=== PATIENT | female | born 1975 | race Caucasian/White ===

== ENCOUNTER 2016-12-01 13:10 | Emergency (ER) | payer OTHER ==
[~2016-12-01] VITALS: Ht 154.9 cm; Wt 94.0 kg
[~2016-12-01 13:10] MED LIST: BECL8.7A; FERR325C PO; PHEN100C PO; PREN1TAB12 PO
[2016-12-01 13:16] VITALS: Ht 154.9 cm; Wt 94.0 kg
[2016-12-01] MEDS ORDERED: ALBUTEROL 0.083% (NEB) 2.5 MG/3 ML AMP HHN STA (13:48)
--- NOTE | 2016-12-01 14:26 | RADRPT ---
PROCEDURE: US OB. CLINICAL INDICATION: Size and dates , pelvic pressure TECHNIQUE: Multiple sonographic images of the pelvis and gravid uterus were obtained. The images were reviewed on a PACS workstation. COMPARISON: No prior studies are available for comparison. FINDINGS: There is a single viable intrauterine gestation. Cardiac activity is present with 156 beats per min [place]. There is a variable presentation. The placenta is anterior/posterior. There is no evidence for an abruption or placenta previa. There is a normal amount of amniotic fluid with a MVP = 3.9 cm. Measurements were made in order to determine age. The results are as follows: BPD =3.3 cm HC =14.1 cm AC =13.3 cm FL =2.3 cm Estimated gestational age of approximately 17 weeks and 3 days based on ultrasound measurements. Clinical age: 17 weeks and 5 days. The estimated date of delivery is 05/08/17, based on ultrasound measurements. The EFW = 210 g, 49.7%, based on LMP age. The ovaries are not visualized. RPTAT: AA IMPRESSION: Single viable intrauterine gestation of approximately 17 weeks and 3 days based on ultrasound measu rements. .Lev Mishra MD, Date Time Electronically viewed and signed by .Lev Mishra MD, on 12/01/2016 14:26 .S/
--- NOTE | 2016-12-01 14:37 | RADRPT ---
PROCEDURE: US Lower extremity Venous. CLINICAL INDICATION: Left leg pain and swelling TECHNIQUE: Multiple sonographic images of the left lower extremity deep venous system was obtained utilizing grayscale, color-flow, compressive sonography and doppler imaging with augmentation. The images were reviewed on a PACS workstation. COMPARISON: None. FINDINGS: There is normal compressibility and flow within the left common femoral, deep femoral, superficial f emoral and popliteal veins. Normal color flow is seen with respiratory variability and augmentation. IMPRESSION: No sonographic evidence for deep venous thrombosis in the left lower extremity. RPTAT: HPNM Physician Mercedes Date Time Electronically viewed and signed by Physician Mercedes on 12/01/2016 14:37 /
[2016-12-01 14:51] LABS: ADD UMIC NO; URINE BILIRUBIN (Dip) NEGATIVE (NEGATIVE); URINE BLOOD (Dip) NEGATIVE (NEGATIVE); URINE COLOR YELLOW (YELLOW); URINE GLUCOSE (Dip) NEGATIVE (NEGATIVE); URINE KETONES (Dip) TRACE (NEGATIVE); URINE LEUKOCYTE ESTERASE (Dip) NEGATIVE (NEGATIVE); URINE NITRITE (Dip) NEGATIVE (NEGATIVE); URINE TOTAL PROTEIN (Dip) NEGATIVE (NEGATIVE); URINE UROBILINOGEN (Dip) 0.2 E.U./dL (0.1-1.0)
[2016-12-01 14:51] LABS: ADD SCAN DIFF NO
[2016-12-01 14:53] LABS: BASOPHILS % 0.4 % (0.0-2.0); EOSINOPHILS # 0.3 10^3/ul (0.0-0.5); EOSINOPHILS % 3.5 % (0.0-7.0); HEMATOCRIT 35.2 % (37.0-47.0); HEMOGLOBIN 11.7 g/dl (12.0-16.0); LYMPHOCYTES # 1.8 10^3/ul (0.8-2.9); LYMPHOCYTES % 21.5 % (15.0-51.0); MEAN CORPUSCULAR HEMOGLOBIN 30.1 pg (29.0-33.0); MEAN CORPUSCULAR HGB CONC 33.2 g/dl (32.0-37.0); MEAN CORPUSCULAR VOLUME 90.5 fl (82.0-101.0); MEAN PLATELET VOLUME 12.1 fl (7.4-10.4); MONOCYTE # 0.6 10^3/ul (0.3-0.9); MONOCYTES % 6.5 % (0.0-11.0); NEUTROPHIL # 5.8 10^3/ul (1.6-7.5); NEUTROPHILS % 67.7 % (39.0-77.0); PLATELET COUNT 213 10^3/UL (140-415); RED BLOOD COUNT 3.89 10^6/ul (4.20-5.40); RED CELL DISTRIBUTION WIDTH 13.1 % (11.5-14.5); WHITE BLOOD COUNT 8.6 10^3/ul (4.8-10.8)
[2016-12-01 15:03] LABS: ALBUMIN 3.5 g/dl (3.3-4.9)
[2016-12-01 15:06] LABS: ALBUMIN/GLOBULIN RATIO 1.06; BILIRUBIN,INDIRECT 0.6 mg/dl (0-1.1); BILIRUBIN,TOTAL 0.6 mg/dl (0.2-1.3); CALCIUM 9.4 mg/dl (8.4-10.2); CREATININE 0.55 mg/dl (0.44-1.00); TOTAL PROTEIN 6.8 g/dl (6.1-8.1)
--- NOTE | 2016-12-01 15:20 | ERD ---
ER Documentation Chief Complaint Date/Time DATE: 12/01/16 TIME: 15:17 Chief Complaint pt bib self, cough, runny nose, cold symptoms, 17 wks HPI This is a 41-year-old female presents to the ER with multiple complaints. Patient has had a cough for the last month. Patient states that today she began to feel short of breath, she states that she does have a past medical history of asthma. Patient went to her primary care doctor and primary care doctor sent her over here. Patient states that she has had chills however denies fevers. Patient also complaining of left arm and left leg pain. She also is complaining of lower back pain that radiates to her pelvic region. Patient denies any vaginal bleeding. She denies any vaginal discharge. She denies any urinary frequency or dysuria. Patient does have a past medical history of a DVT in her left leg. Patient denies any nausea vomiting or diarrhea. Patient does have diabetes she takes metformin for her diabetes. ROS 12 point review of systems was done, all negative except per HPI. Medications Home Meds Active Scripts Albuterol Sulfate* (Proair HFA*) 8.5 Gm Hfa.aer.ad, 2 PUFF INH Q4, #1 INHALER Prov:YARIEL PEREZ 12/01/16 Dextromethorphan Hb-Promethazine Hcl (Promethazine DM Syrup) 473 Ml Syrup, 10 ML PO Q6H Y for COUGH, #4 OZ Prov:YARIEL PEREZ 12/01/16 Reported Medications Ferrous Sulfate (Iron) 325 Mg Capsr, 325 MG PO DAILY, 0 Refills 11/23/10 Vit-Iron Fumarate-FA (Prenavite Tablet) 1 Tab Tablet, 1 TAB PO DAILY, 0 Refills 11/23/10 Beclomethasone Dip* (Qvar 40*) 7.3 Gm Inha 11/23/10 Phenytoin* Sodium Extended (Dilantin*) 100 Mg Capsule, 300 MG PO DAILY, 0 Refills 11/23/10 Allergies Allergies: Coded Allergies: ibuprofen (Verified Allergy, Unknown, 09/09/11) PMhx/Soc History of Surgery: No Anesthesia Reaction: No Hx Neurological Disorder: Yes (SEIZURES) Hx Respiratory Disorders: Yes (ASTHMA) Hx Cardiac Disorders: No Hx Psychiatric Problems: No Hx Miscellaneous Medical Probl: No Hx Alcohol Use: No Hx Substance Use: No Hx Tobacco Use: No Smoking Status: Never smoker Physical Exam Vitals Vital Signs Date Time Temp Pulse Resp B/P Pulse Ox O2 Delivery O2 Flow Rate FiO2 12/01/16 14:52 78 18 98 21 12/01/16 13:16 98.3 78 18 118/70 98 Physical Exam GENERAL: The patient is well-developed, well-nourished, in no acute distress. HEENT: Atraumatic. RESPIRATORY: Clear to auscultation bilaterally. There are no rales, wheezes or rhonchi. HEART: Regular rate and rhythm. No murmurs, clicks, rubs or gallops. Extremities: Left leg, there is no swelling or redness of the calf. NEUROLOGIC: Alert and oriented. SKIN: There is no rash. The skin is warm and dry. Result Diagram: 12/01/16 1444 12/01/16 1444 Results 24 hrs Laboratory Tests Test 12/01/16 14:00 12/01/16 14:44 Urine Color YELLOW Urine Clarity CLEAR Urine pH 5.5 Urine Specific [place] >=1.030 Urine Ketones TRACE Urine Nitrite NEGATIVE Urine Bilirubin NEGATIVE Urine Urobilinogen 0.2 E.U./dL Urine Leukocyte Esterase NEGATIVE Urine Hemoglobin NEGATIVE Urine Glucose NEGATIVE% Urine Total Protein NEGATIVE White Blood Count 8.610^3/ul Red Blood Count 3.8910^6/ul Hemoglobin 11.7g/dl Hematocrit 35.2% Mean Corpuscular Volume 90.5fl Mean Corpuscular Hemoglobin 30.1pg Mean Corpuscular Hemoglobin Concent 33.2g/dl Red Cell Distribution Width 13.1% Platelet Count 93318^3/UL Mean Platelet Volume 12.1fl Neutrophils % 67.7% Lymphocytes % 21.5% Monocytes % 6.5% Eosinophils % 3.5% Basophils % 0.4% Nucleated Red Blood Cells % 0.0/100WBC Neutrophils # 5.810^3/ul Lymphocytes # 1.810^3/ul Monocytes # 0.610^3/ul Eosinophils # 0.310^3/ul Basophils # 0.010^3/ul Nucleated Red Blood Cells # 0.010^3/ul Sodium Level 135mmol/L Potassium Level 4.0mmol/L Chloride Level 102mmol/L Carbon Dioxide Level 24mmol/L Anion Gap 13 Blood Urea Nitrogen 10mg/dl Creatinine 0.55mg/dl Glucose Level 95mg/dl Calcium Level 9.4mg/dl Total Bilirubin 0.6mg/dl Direct Bilirubin 0.00mg/dl Indirect Bilirubin 0.6mg/dl Aspartate Amino Transf (AST/SGOT) 40IU/L Alanine Aminotransferase (ALT/SGPT) 66IU/L Alkaline Phosphatase 52IU/L Total Protein 6.8g/dl Albumin 3.5g/dl Globulin 3.30g/dl Albumin/Globulin Ratio 1.06 Current Medications Medications (Trade) Dose Ordered Sig/León Route PRN Reason Start Time Stop Time Status Last Admin Dose Admin Albuterol (Proventil 0.083% (Neb)) 5 mg ONCE STAT HHN 12/01/16 13:48 12/01/16 13:53 DC 12/01/16 14:49 Procedures/MDM This is a 41-year-old female presents to the ER with multiple complaints. Patient does have upper respiratory infection symptoms. I discussed this case with Dr. Rios, and he agrees with my medical decision making. At this time this is likely viral in etiology. Patient did not have any evidence of pneumonia on x-ray. She was given albuterol nebulized treatment and she felt significantly better. Suspicion for DVT is low. Patient's ultrasound for clots was negative and her vital signs are stable with no evidence of tachycardia or hypoxia. Afebrile and well-appearing. In regards to patient's back pain this may be secondary to . Patients OB ultrasound was also normal. Patient was sent home with promethazine and albuterol. She is to follow-up with her primary care doctor within 1-2 days return to ER sooner if symptoms worsen. My medical decision making was shared with the patient she understands and agrees with plan. Departure Diagnosis: Primary Impression: Upper respiratory infection Condition: Stable YARIEL PEREZ Dec 01, 2016 15:20
--- NOTE | 2016-12-01 17:01 | RADRPT ---
PROCEDURE: XR Chest. CLINICAL INDICATION: Cough. TECHNIQUE: PA and Lateral views of the chest were obtained. COMPARISON: Chest x-ray 01/10/2008.c FINDINGS: The soft tissues are normal. The bony elements are normal. The heart, left side aorta, cardiomedia stinal silhouette, pulmonary vasculature and hilar structures are normal. The lungs are clear. The costophrenic angles are normal. IMPRESSION: 1. Stable chest x-ray with no evidence of active cardiopulmonary disease. RPTAT:AAJJ Physician Ellie Date Time Electronically viewed and signed by Alli Sutton Physician on 12/01/2016 17:00 JASON/
[2016-12-01] MEDS ORDERED: D-ME473S18 PO (17:06)
[2016-12-01] MEDS ORDERED: ALBU8.5H3 INH (17:06)
== END 2016-12-01 17:19 | disposition home or self-care (01) ==
LOC: FTE 13:10
DX: O99.512 Diseases of the respiratory system complicating pregnancy, second trimester (principal); J06.9 Acute upper respiratory infection, unspecified; J45.909 Unspecified asthma, uncomplicated; R05 Cough; Z3A.17 17 weeks gestation of pregnancy
CPT/HCPCS: 71010; 76805; 80053; 81003; 85025; 93971; 94664; Z7502; Z7610

== ENCOUNTER 2017-01-05 20:55 | Outpatient (CLI) | payer OTHER ==
[~2017-01-05] VITALS: Ht 157.5 cm; Wt 90.7 kg
[~2017-01-05 20:55] MED LIST changes: +ALBU8.5H3 INH; +D-ME473S18 PO
[2017-01-05 21:27] VITALS: BP 110/60; PULSE 72; RESP 18; Ht 157.5 cm; Wt 90.7 kg
[2017-01-05] MEDS ORDERED: FOLI0.8C PO (21:33)
[2017-01-05] MEDS ORDERED: PROG100C5 VAG (21:33)
[2017-01-05 23:46] LABS: ADD UMIC YES; URINE BILIRUBIN (Dip) NEGATIVE (NEGATIVE); URINE BLOOD (Dip) NEGATIVE (NEGATIVE); URINE COLOR LT. YELLOW (YELLOW); URINE GLUCOSE (Dip) NEGATIVE (NEGATIVE); URINE KETONES (Dip) NEGATIVE (NEGATIVE); URINE LEUKOCYTE ESTERASE (Dip) TRACE (NEGATIVE); URINE NITRITE (Dip) NEGATIVE (NEGATIVE); URINE TOTAL PROTEIN (Dip) NEGATIVE (NEGATIVE); URINE UROBILINOGEN (Dip) 0.2 E.U./dL (0.1-1.0)
[2017-01-06 00:07] LABS: SQUAMOUS EPITHELIAL CELL,UR MODERATE; URINE RBCS 0-2 /HPF (0)
[2017-01-06 00:08] LABS: BACTERIA,URINE MODERATE
--- NOTE | 2017-01-06 01:39 | RADRPT ---
PROCEDURE: ULTRASOUND OBSTETRICAL CLINICAL INDICATION: 41-year-old female in labor for size and date determination. TECHNIQUE: Multiple sonographic images of the pelvis were obtained. The images were reviewed on a PACS workstation. COMPARISON: No prior studies are available for comparison. FINDINGS: The cervix is closed with a length of 3.9 cm. There is a single viable intrauterine gestation. Card iac activity is present with 131 beats per minute. There is a breech presentation. Measurements were made in order to determine age. The results are as follows: BPD = 5.47 cm, HC = 19.59 cm, AC = 17.12 cm, FL = 3.86 cm. This yields and estimated gestational ag e of approximately 22 weeks 2 days. The estimated date of delivery is May 10, 2017. The EFW = 483 +/- 73 g (1 lb 1 oz). The GP is 12%. The placenta is posterior. There is no evidence for an abruption or placenta previa. There is an adequate amount of amniotic fluid with a maximal vertical pocket of 5.6 cm. IMPRESSION: Single viable intrauterine gestation of approximately 22 weeks 2 days with breech presentation. The estimated date of delivery is May 10, 2017. .Jose Raul Mejia MD, MD Date Time Electronically viewed and signed by .Jose Raul Mejia MD, on 01/06/2017 01:37 .M/
--- NOTE | 2017-01-06 01:55 | QN ---
Documentation Comment OB triage: 23+wks GA for R/oPreterm labor +Fm No VB No LOF No CTXs CXL and ultrasound is in WNL range FFN Neg --->discharge --->precautions discussed with patient --->patient's questions answered ALEC ARAGON M.D. January 06, 2017 01:55
--- NOTE | 2017-01-06 02:22 | TRIAGE ---
OB Triage Datetime Report Generated by CPN: 01/06/2017 02:22 Datetime: 01/06/2017 01:48 Comments: MONITORS REMOVED Datetime: 01/06/2017 01:16 Stage of : OB Triage Labor Evaluation Frequency: IRREGULAR Monitor Mode: External Duration (sec)2399: 50-90 Quality: Mild Resting Tone [place]: Relaxed Pain Assessment Pain Scale: 0 Pain Presence: None/Denies Pain Type: N/A Pain Goal: 3 Datetime: 01/06/2017 00:16 Stage of : OB Triage Labor Evaluation Frequency: IRREGULAR Monitor Mode: External Duration (sec)2399: 50-90 Quality: Mild Resting Tone [place]: Relaxed Contraction Comments: PT STATES CONTRACTIONS HAVE SLOWED DOWN Heart Rate FHR Baseline Rate: 145 Monitor Mode: External US Variability: Moderate 6-25 bpm Accelerations: None Decelerations: None Comments: LOSS OF CONTACT DUE TO PT BMI/PT MOVING IN BED Pain Assessment Pain Scale: 0 Pain Presence: None/Denies Pain Type: N/A Pain Goal: 3 Datetime: 01/05/2017 23:16 Stage of : OB Triage Labor Evaluation Frequency: IRREGULAR Monitor Mode: External Duration (sec)2399: 50-90 Quality: Mild Resting Tone [place]: Relaxed Heart Rate FHR Baseline Rate: 145 Monitor Mode: External US Variability: Moderate 6-25 bpm Accelerations: None Decelerations: None Comments: LOSS OF CONTACT DUE TO PT BMI/PT MOVING IN BED Datetime: 01/05/2017 23:15 Stage of : OB Triage Datetime: 01/05/2017 23:09 Stage of : OB Triage Datetime: 01/05/2017 23:05 Stage of : OB Triage Datetime: 01/05/2017 22:16 Stage of : OB Triage Labor Evaluation Frequency: IRREGULAR Monitor Mode: External Duration (sec)2399: 50-90 Quality: Mild Resting Tone [place]: Relaxed Heart Rate FHR Baseline Rate: 145 Monitor Mode: External US Variability: Moderate 6-25 bpm Accelerations: None Decelerations: None Category: Category I Comments: LOSS OF CONTACT DUE TO PT BMI/PT MOVING IN BED Datetime: 01/05/2017 22:15 Stage of : OB Triage Datetime: 01/05/2017 21:19 EGA: 23.0 Vaginal Exam Membrane Status: Intact Datetime: 01/05/2017 21:16 Stage of : OB Triage Assessment Type: Triage Maternal Assessment Level of Consciousness: Fully Conscious DTR's/Clonus: DTRs 2+; No Clonus Headache: Denies Blurred Vision: No Respiratory Effort: Unlabored; Regular Rhythm; Equal Expansion Breath Sounds, Left: Clear and Equal Breath Sounds, Right: Clear and Equal Nausea/Vomiting: Denies RUQ Epigastric Pain: Denies Lower Extremities Edema: Bilateral Lower Extremities Degree: 1+ Upper Extremities Edema: None Degree: None Facial Edema: None Temperature Route: Oral Fall Risk Assessment History of Falling: (0) No Secondary Diagnosis: (0) No Ambulatory Aid: (0) Bedrest/Nurse Assist IV Therapy: (0) No Gait: (0) Normal/Bedrest/Immobile Mental Status: (0) Oriented to Own Ability Fall Score: 0 Fall Risk Score Definition: No Risk: No action required Pain Assessment Pain Scale: 4 Pain Presence: Intermittent Pain Type: Cramping Pain Location: Abdomen; Back Pain Relief Measures: Comfort Measures Datetime: 01/05/2017 21:11 Time of Arrival: 01/05/2017 20:50 Arrived By: Wheelchair Arrived From: Home Contractions: Regular Time Contractions Began: 01/05/2017 08:30 Contractions: q5mins Rupture of Membranes: Denies Vaginal Bleeding: None Vaginal Discharge: Denies Recent Sexual Intercouse: Denies Abdominal Trauma: Not Applicable Patient Complaints: Contractions; Cramping; Back Pain Time Provider Notified: 01/05/2017 23:05 Provider Notified: MAHESH Initial Plan: MONITOR PT
== END 2017-01-06 01:55 | disposition home or self-care (01) ==
LOC: L-D 20:55 → OBT 20:55
PROVIDERS: ATTEND Obstetrics & Gynecology
DX: O26.892 Other specified pregnancy related conditions, second trimester (principal); O09.522 Supervision of elderly multigravida, second trimester; Z3A.23 23 weeks gestation of pregnancy
CPT/HCPCS: 76815; 76817; 81001; 82731; Z7500; 81003; G0463